=== PATIENT | male | born 1960 | race Caucasian/White ===

== ENCOUNTER 2021-08-16 23:45 | Emergency (ER) | payer OTHER, SELFPAY ==
--- NOTE | ~2021-08-16 | CT_ITS ---
EXAMINATION: CT abdomen pelvis w con DATE: 08/17/2021 05:17 INDICATION: Lower abdominal pain TECHNIQUE: Computed tomography (CT) of the abdomen and pelvis was performed with 100 mL Omnipaque-350 intravenous contrast. Automated exposure control and iterative reconstruction technique were employe d. The dose-length product was 666.59 mGy-cm. COMPARISON: None FINDINGS: Calcified right lower lobe nodules and calcified right hilar lymph nodes consistent with old granulom atous disease. The larger of the 2 calcified nodules along the dome of the diaphragm measures 9 x 12 mm with eccentric calcification confined to one side of the nodule. Heart size is normal. Atheroscler otic coronary artery calcification. No pericardial effusion. Liver, gallbladder, spleen, pancreas, bi lateral adrenal glands and kidneys are normal. Bladder is normal. Status post prostatectomy with mult iple surgical clips in the prostatectomy bed and along the bilateral external iliac arteries consiste nt with associated pelvic lymph node dissection. Suture line along a likely appendiceal stump at the tip of the appendix. Surgical clip along with multiple mildly prominent but still normal-sized lymph nodes along the ileocolic chain. Mild scattered diverticulosis without adjacent inflammatory change t o suggest diverticulitis. Likely prior sigmoidectomy with rectosigmoid anastomotic suture line. There are multiple fluid-filled but not frankly dilated loops of small bowel in the abdomen without discre te transition point and would favor ileus or enteritis over early or partial small bowel obstruction. No free intraperitoneal gas or fluid. No pathologically enlarged abdominal or pelvic lymphadenopathy . Mild scattered degenerative skeletal changes. A few small bone islands in the pelvis and proximal f emurs. IMPRESSION: 1. Multiple fluid filled but not frankly dilated loops of small bowel and would favor either ileus or enteritis over early or partial small bowel obstruction. 2. 9 x 12 mm right lower lobe nodule with eccentric calcification likely sequela of old granulomatous disease however given the size and the eccentric distribution of the calcification would recommend a 3-six-month follow-up low-dose noncontrast chest CT. 3. Mild likely reactive lymphadenopathy along the ileocolic chain. Reviewed, dictated and finalized at location [facility] IMPRESSION: 1. Multiple fluid filled but not frankly dilated loops of small bowel and would favor either ileus or enteritis over early or partial small bowel obstruction. 2. 9 x 12 mm right lower lobe nodule with eccentric calcification likely sequel a of old granulomatous disease however given the size and the eccentric distrib ution of the calcification would recommend a 3-six-month follow-up low-dose non contrast chest CT. 3. Mild likely reactive lymphadenopathy along the ileocolic chain.
[2021-08-17 00:12] VITALS: BP 106/64; PULSE 66; RESP 16; TEMP 36.3; O2SAT 96
[2021-08-17 01:38] VITALS: BP 113/73; PULSE 65; RESP 18; O2SAT 96
--- NOTE | 2021-08-17 04:19 | ED.ABDPAIN ---
HPI - Abdominal Pain General Chief Complaint: Abdominal Pain Stated Complaint: ABD PAIN Time Seen by Provider: 08/17/21 04:23 Source: patient Mode of arrival: ambulatory Limitations: no limitations History of Present Illness HPI narrative: Patient is a 61-year-old male complaining of left lower quadrant pain, 6 out of 10 earlier, now 1 out of 10, sharp, nonradiating started yesterday. Patient states that he has a history of diverticulitis and feels like this is similar. Patient denies any chest pain, shortness of breath, nausea, vomiting, diarrhea, fever or chills. Related Data Allergies Allergy/AdvReac Type Severity Reaction Status Date / Time No Known Allergies Allergy Verified 08/17/21 04:30 Review of Systems Review of Systems: All systems reviewed & are unremarkable except as noted in HPI and below Constitutional: Constitutional: Denies body ache(s), Denies chills, Denies excessive sweating, Denies fatigue, Denies fever(s), Denies headache(s), Denies lethargy, Denies malaise, Denies weakness and Denies weight loss Eyes: Eyes: Denies blurry vision, Denies change in vision and Denies loss of vision ENT: Denies dizziness, Denies ear discharge, Denies headache(s), Denies lip swelling, Denies epistaxis, Denies nasal congestion, Denies neck pain, Denies throat swelling and Denies tongue swelling Cardiovascular: Cardiovascular: Denies chest pain, Denies chest pain at rest, Denies chest pain with activity, Denies diaphoresis, Denies rapid heart rate, Denies edema, Denies irregular heart rhythm, Denies lightheadedness, Denies palpitations, Denies dyspnea and Denies dyspnea on exertion Respiratory: Respiratory: Denies chest congestion, Denies cough, Denies hemoptysis, Denies dyspnea and Denies dyspnea on exertion Gastrointestinal: Gastrointestinal: Denies melena, Denies hematochezia, Denies diarrhea, Denies nausea, Denies vomiting and Denies hematemesis Musculoskeletal: Musculoskeletal: Denies abnormal gait, Denies deformity, Denies joint swelling, Denies limited range of motion, Denies neck pain and Denies numbness Neurologic: Denies Abnormal speech present, Denies abnormal gait, Denies confusion, Denies dizziness, Denies headache(s), Denies focal weakness, Denies loss of vision, Denies numbness, Denies Other visual disturbances, Denies Sensory deficit (Neuro) and Denies weakness Psychiatric: Psychiatric: Denies confusion, Denies depression, Denies auditory hallucinations, Denies homicidal ideation and Denies suicidal ideation Endocrine: Endocrine: Denies cold intolerance, Denies excessive sweating, Denies fatigue, Denies heat intolerance and Denies palpitations Hematologic/Lymphatic: Hematologic/Lymphatic: Denies easy bleeding and Denies easy bruising Allergic/Immunologic: Allergic/Immunologic: Denies lip swelling, Denies throat swelling and Denies tongue swelling PMFSH Comments Past medical history: Diverticulitis Family history: Hypertension Social history: Non-smoker no EtOH or drug use Exam Const: General: cooperative, healthy appearing, comfortable, no acute distress, well developed, alert and awake; No confusion Orientation/consciousness: oriented to person, oriented to place, oriented to time, patient oriented x3 and No confusion Limitations: no limitations HENMT: Head: normal to inspection, normocephalic and atraumatic Ears: hearing grossly normal bilaterally, TM normal on the right and TM normal on the left General nose exam: Normal external nose present, Normal nares present and No nasal discharge present Face and sinus: normal facial exam Mouth: Yes Normal oral and palatal mucosa present, Yes lip normal, Yes tongue normal and Yes oropharynx normal Throat: posterior oropharynx normal, tonsils normal and uvula midline Eyes: General: appearance normal, both eyes and all related structures Pupils: Equal, round and reactive pupils present EOM: EOMs intact bilaterally Neck: Neck: normal visual inspection, full ROM, no l
[2021-08-17 04:51] LABS: Basophils Percent Auto 0.3 % (0.2-1.2); Eosinophils Percent Auto 0.2 % (0-4.4); Hematocrit 46.4 % (42.0-52.0); Hemoglobin 15.7 g/dL (14.0-18.0); Immature Granulocyte Absolute 0.06 K/mm3 (0.00-0.031); Immature Granulocyte Percent A 0.4 % (0-0.5); Lymphocytes Absolute Auto 1.24 K/mm3 (0.9-3.2); Lymphocytes Percent Auto 8.7 % (18.3-44.2); Mean Corpuscular HGB Conc 33.8 g/dl (32-36); Mean Corpuscular Hemoglobin 30.7 pg (26-34); Mean Corpuscular Volume 90.6 fl (80-100); Mean Platelet Volume 9.9 fl (7.4-10.4); Monocytes Absolute Auto 0.9 K/mm3 (0.1-0.6); Monocytes Percent Auto 6.1 % (2.6-8.5); Neutrophils Percent Auto 84.3 % (45.5-73.1); Platelet Count Result 348 k/mm3 (150-375); Red Blood Count 5.12 M/mm3 (4.6-6.20); Red Cell Distribution Width 13.2 % (11.5-14.5); White Blood Count 14.2 K/mm3 (4.5-10.0)
[2021-08-17 04:56] LABS: Alanine Aminotransferase 45 U/L (4-50); Albumin Level 4.8 g/dL (3.5-5.1); Alkaline Phosphatase 69 U/L (38-126); Anion Gap 11 mmol/L (8-16); Aspartate Amino Transferase 38 U/L (17-59); Bilirubin,Total 1.8 mg/dL (0.2-1.3); Blood Urea Nitrogen 27 mg/dL (9-20); Calcium 9.5 mg/dL (8.4-10.2); Carbon Dioxide 26 mmol/L (22-30); Chloride 102 mmol/L (98-107); Estimated CRCL calculation 50 ml/min; Estimated Glomerular Filt Rate 52; Glucose 126 mg/dL (65-110); Lipase 63 U/L (23-300); Potassium 4.4 mmol/L (3.4-5.0); Sodium 139 mmol/L (137-145)
[2021-08-17 04:57] LABS: Lactic Acid Reflex 0.9 mmol/L (0.7-2.1)
[2021-08-17 05:15] VITALS: BP 131/78; PULSE 62; RESP 15; O2SAT 96
[2021-08-17] MEDS: SODIUM CHLORIDE 0.9% IV 1,000 ML 999 ML IV CONT (05:22)
[2021-08-17 05:37] LABS: Add Urine Microscopic? YES; Appearance Urine Clear (Clear); Bacteria Urine Trace /hpf; Bilirubin Urine 1+ (Negative); Blood Urine Negative (Negative); Color Urine Amber (Yellow); Glucose Urine UA Negative (Negative); Ketones Urine Trace mg/dL (Negative); Leukocyte Esterase Ur Negative LEU/UL (Negative); Mucus Urine Heavy /lpf; Nitrate Urine Negative (Negative); Protein Urine 2+ mg/dL (Negative); Squamous Epithelial Cell Urine Rare /hpf (Few)
[2021-08-17 05:49] LABS: Specific Grav Ur 1.035 (1.001-1.035)
[2021-08-17 06:18] VITALS: BP 120/73; PULSE 56; RESP 18; O2SAT 95
== END 2021-08-17 06:19 | disposition home or self-care (01) ==
PROVIDERS: Emergency Provider Emergency Medicine
DX: I88.0 Nonspecific mesenteric lymphadenitis (principal); K57.90 Diverticulosis of intestine, part unspecified, without perforation or abscess without bleeding
CPT/HCPCS: 36415; 74177; 80053; 81001; 83605; 83690; 85025; 96360; 99284; J7030; Q9967